=== PATIENT | male | born 1945 | race Caucasian/White ===

== ENCOUNTER 2020-07-07 14:55 | Outpatient (CLI) | payer MEDICARE, SELFPAY ==
--- NOTE | ~2020-07-07 | CT_ITS ---
EXAMINATION: CT brain wo con DATE: 07/07/2020 15:24 INDICATION: Repeated falls. TECHNIQUE: Computed tomography (CT) of the head was performed without intravenous contrast. The mA wa s adjusted according to patient size. Iterative reconstruction technique was employed. The dose-lengt h product was 394.35 mGy-cm. COMPARISON: None FINDINGS: There is a 3.2 x 2.8 cm arachnoid cyst anterior to left temporal lobe. There is no intracra nial hemorrhage, acute infarction, or abnormal intracranial mass lesion. The lateral and third ventri cles are dilated out of proportion to the size of the sulci. There is mild mucosal thickening in the paranasal sinuses. There is a trace right mastoid effusion. The orbits are normal. IMPRESSION: 1. Ventriculomegaly involving the lateral and third ventricles. Correlate clinically for normal press ure hydrocephalus. Reviewed, dictated and finalized at location A. IMPRESSION: 1. Ventriculomegaly involving the lateral and third ventricles. Correlate clini cristobal for normal pressure hydrocephalus.
== END 2020-07-07 14:56 | disposition home or self-care (01) ==
PROVIDERS: PCP Internal Medicine; Visit Provider Internal Medicine
DX: Z91.81 History of falling (principal)
CPT/HCPCS: 70450

== ENCOUNTER 2020-08-31 14:03 | Outpatient (NON) | payer MEDICARE, SELFPAY ==
[2020-08-31 14:41] LABS: Basophils Absolute Auto 0.02 K/mm3 (0.00-0.10); Basophils Percent Auto 0.2 % (0.0-1.0); Eosinophils Absolute Auto 0.18 K/mm3 (0.02-0.50); Hematocrit 44.2 % (37.0-46.0); Hemoglobin 14.4 g/dL (12.4-15.3); Immature Granulocyte Absolute 0.02 K/mm3 (0.00-0.00); Immature Granulocyte Percent A 0.2 % (0.0-0.0); Lymphocytes Absolute Auto 2.32 K/mm3 (1.10-4.50); Lymphocytes Percent Auto 25.9 % (18.0-42.0); Mean Corpuscular HGB Conc 32.6 g/dL (32.0-36.0); Mean Corpuscular Hemoglobin 30.1 pg (27.0-31.0); Mean Corpuscular Volume 92.3 fL (78.0-102.0); Mean Platelet Volume 9.9 fl (8.7-11.0); Monocytes Absolute Auto 0.55 K/mm3 (0.10-0.90); Monocytes Percent Auto 6.1 % (2.0-11.0); Neutrophils Absolute Auto 5.9 K/mm3 (1.7-7.2); Neutrophils Percent Auto 65.6 % (50.0-70.0); Platelet Count Result 270 K/mm3 (150-420); Red Blood Count 4.79 M/mm3 (4.70-6.10); Red Cell Distribution Width 12.9 % (11.6-14.4)
[2020-08-31 15:03] LABS: BNP 194 pg/mL (0-100)
[2020-08-31 15:04] LABS: Alanine Aminotransferase 36 U/L (16-63); Albumin Level 4.2 g/dL (3.4-5.0); Alkaline Phosphatase 84 U/L (46-116); Anion Gap 10 mmol/L (8-16); Aspartate Amino Transferase 21 U/L (15-37); Bilirubin,Total 0.6 mg/dL (0.00-1.00); Blood Urea Nitrogen 27 mg/dL (7-18); Calcium 9.3 mg/dL (8.5-10.1); Carbon Dioxide 24 mmol/L (21-32); Chloride 104 mmol/L (98-108); Estimated Glomerular Filt Rate 46; Osmolality Calculated 288 mOsm/kg (285-295); Potassium 4.4 mmol/L (3.5-5.1); Sodium 138 mmol/L (136-145)
[2020-08-31 15:10] LABS: Glucose 42 mg/dL (70-99)
== END 2020-08-31 14:04 ==
DX: I50.9 Heart failure, unspecified (principal); D64.9 Anemia, unspecified
CPT/HCPCS: 36415; 80053; 83880; 85025

== ENCOUNTER 2020-09-13 13:03 | Outpatient (NON) | payer MEDICARE, SELFPAY ==
[2020-09-13 13:52] LABS: Anion Gap 9 mmol/L (8-16); Blood Urea Nitrogen 32 mg/dL (7-18); Calcium 8.9 mg/dL (8.5-10.1); Carbon Dioxide 27 mmol/L (21-32); Chloride 103 mmol/L (98-108); Estimated Glomerular Filt Rate 43; Glucose 116 mg/dL (70-99); Osmolality Calculated 295 mOsm/kg (285-295); Potassium 4.2 mmol/L (3.5-5.1); Sodium 139 mmol/L (136-145)
== END 2020-09-13 13:04 ==
LOC: CHSLAB 13:05
PROVIDERS: PCP Internal Medicine; Visit Provider Internal Medicine
DX: R60.9 Edema, unspecified (principal)
CPT/HCPCS: 36415; 80048

== ENCOUNTER 2020-09-26 16:43 | Outpatient (NON) | payer MEDICARE, SELFPAY ==
[2020-09-26 17:43] LABS: Add Urine Microscopic? YES; Appearance Urine Clear (Clear); Bilirubin Urine Negative (Negative); Blood Urine Negative (Negative); Color Urine Yellow (Yellow); Glucose Urine UA Negative (Negative); Ketones Urine Trace (Negative); Leukocyte Esterase Ur 2+ LEU/UL (Negative); Nitrate Urine Negative (Negative); Protein Urine Negative (Negative); Specific Grav Ur 1.025 (1.010-1.020); Urobilinogen Urine 0.2 mg/dL (0.2-1.0)
[2020-09-26 17:51] LABS: Bacteria Urine 2+ /hpf; Squamous Epithelial Cell Urine Rare /hpf (Few); WBC Clumps Urine Present /hpf; WBC Urine >75 /hpf (0-3)
== END 2020-09-26 16:44 ==
PROVIDERS: Visit Provider Internal Medicine
DX: M54.5 Low back pain (principal); R53.83 Other fatigue; R82.90 Unspecified abnormal findings in urine
CPT/HCPCS: 81001; 87077; 87086; 87088; 87186